=== PATIENT | male | born 1960 | race Caucasian/White ===

== ENCOUNTER 2024-01-16 15:53 | Emergency (ER) | payer BC ==
[~2024-01-16] VITALS: Ht 182.9 cm; Wt 101.1 kg
[2024-01-16] MEDS ORDERED: AMOX-580 PO (19:46)
[2024-01-16] MEDS: amox tr/potassium clavulanate 875/125mg TAB PO ONE (19:53)
[2024-01-16] MEDS: rifampin 300mg capsule PO SCH (19:54)
[2024-01-16 20:32] VITALS: BP 136/86; PULSE 99; RESP 18; TEMP 99; O2SAT 98
== END 2024-01-16 20:34 | disposition home or self-care (01) ==
LOC: ER 15:54
DX: M72.0 Palmar fascial fibromatosis [Dupuytren] (principal); I10 Essential (primary) hypertension; E11.9 Type 2 diabetes mellitus without complications; W54.0XXA Bitten by dog, initial encounter; Y93.89 Activity, other specified; Y92.89 Other specified places as the place of occurrence of the external cause; Y99.8 Other external cause status
CPT/HCPCS: 82948; 99283